=== PATIENT | female | born 2000 | race African-American/Black ===

== ENCOUNTER 2024-03-03 04:33 | Emergency (ER) | payer MEDICAID, OTHER ==
[~2024-03-03] VITALS: Ht 167.6 cm; Wt 62.0 kg
[2024-03-03 04:47] VITALS: O2SAT 100
[2024-03-03] MEDS: ONDANSETRON HCL 4MG/2ML INJ IV STA (05:59)
[2024-03-03 06:00] LABS: BASOPHILS % 0.4 % (0.0-2.0); EOSINOPHILS % 0.8 % (0.0-5.0); HEMATOCRIT. 34.7 % (36.0-48.0); HEMOGLOBIN. 11.5 g/dL (12.0-16.0); LYMPHOCYTES % 9.6 % (20.0-50.0); MEAN CORPUSCULAR HEMOGLOBIN 30.7 pg (28.0-32.0); MEAN CORPUSCULAR HGB CONC 33.3 g/dL (31.0-37.0); MEAN CORPUSCULAR VOLUME 92.2 fL (81.0-99.0); MEAN PLATELET VOLUME 7.2 fl (7.4-10.4); MONOCYTES % 5.4 % (2.0-8.0); NEUTROPHILS % 83.8 % (40.0-76.0); PLATELET 252 x1000/uL (130-400); RED BLOOD CELL COUNT 3.76 mill/uL (4.2-5.4); RED CELL DISTRIBUTION WIDTH 13.6 % (11.6-14.6); WHITE BLOOD COUNT 7.3 x1000/uL (4.5-11.0)
[2024-03-03] MEDS: MORPHINE SULFATE 4 MG/ML INJ (FOR IV/IM USE) IV STA (06:02)
[2024-03-03 06:13] LABS: CHLORIDE 107 mEq/L (98-107); POTASSIUM 3.6 mEq/L (3.5-5.1); PROTHROMBIN TIME 11.4 sec (9.6-11.0); SODIUM 138 mEq/L (136-145)
[2024-03-03 06:14] LABS: CALCIUM 9.5 mg/dL (8.7-10.4); CARBON DIOXIDE 23 mEq/L (21-32)
[2024-03-03 06:19] LABS: GLUCOSE 87 mg/dL (70-105); UREA NITROGEN BLOOD 10 mg/dL (9-23)
[2024-03-03 06:23] LABS: HCG SCREEN NEGATIVE
[2024-03-03 06:41] LABS: ETHANOL BLOOD < 10 mg/dL (<10); TROPONIN I HIGH SENSITIVITY < 4 ng/L (3.0-34)
[2024-03-03 06:51] LABS: TROPONIN I HIGH SENSITIVITY < 4 ng/L (3.0-34)
[2024-03-03] MEDS ORDERED: NAPR-1176 MT (08:54)
[2024-03-03 09:06] VITALS: BP 110/57; PULSE 73; RESP 12; TEMP 98.3
== END 2024-03-03 09:17 | disposition home or self-care (01) ==
LOC: ER 04:33
DX: R07.89 Other chest pain (principal)
CPT/HCPCS: 80048; 80320; 84703; 83880; 83690; 85025; 85379; 85610; 84484; 36415; 71045; 93005; 96374; 96375; 99285; J2405; J2270; Z7610 ×2; G0480